=== PATIENT | male | born 1990 | race American Indian/Alaskan Native ===

== ENCOUNTER 2018-08-29 11:24 | Emergency (ER) | payer SELFPAY ==
[2018-08-29 12:00] VITALS: BP 151/99
--- NOTE | 2018-08-29 12:00 | Emergency Department Report ---
Blank Doc - Documentation Documentation: This is a 28-year-old male that presents with acute headache and right sided eye pain. Denies any injuries or visual changes. This initial assessment/diagnostic orders/clinical plan/treatment(s) is/are subject to change based on patient's health status, clinical progression and re- assessment by fellow clinical providers in the ED. Further treatment and workup at subsequent clinical providers discretion. Patient/guardians urged not to elope from the ED as their condition may be serious if not clinically assessed and managed. Initial orders include: 1- Patient sent to [facility] for further evaluation and treatment 2- tonopen/cleaning lamp 3- CT head 4- graduate school dean notified patient to be brought back [facility] for medical evaluation.
--- NOTE | 2018-08-29 13:38 | Emergency Department Report ---
Blank Doc - Documentation Documentation: Went to see the patient twice the patient was in the radiology department rece iving a CAT scan of the head for his headache. Upon the patient returning from CAT scan he eloped before being evaluated by me. Patient not receive results of imaging or receive any medical treatment
--- NOTE | 2018-08-29 13:57 | Cat Scan Report ---
CT head/brain wo con INDICATION: headache. TECHNIQUE: Routine CT head without contrast. Sagittal and coronal reformatted images were obtained. A ll CT scans at this location are performed using CT dose reduction for ALARA by means of automated ex posure control. COMPARISON: None. FINDINGS: BRAIN / INTRACRANIAL CONTENTS: No acute hemorrhage, mass effect, midline shift, hydrocephalus, or acu te, large territorial infarct. No chronic infarct or focal atrophy. Normal brain volume and ventricul ar/sulcal size for age. No significant white matter abnormality. CRANIOCERVICAL JUNCTION: No significant abnormality. ORBITS: No significant abnormality of visualized orbits. SINUSES / MASTOIDS: Fluid level accumulation is seen in the right frontal sinus. Right anterior and p osterior ethmoid air cells are opacified. Left ethmoid air cells, left frontal sinus and sphenoid sin us are normally pneumatized. We did not image the maxillary sinuses. ADDITIONAL FINDINGS: None. IMPRESSION: Normal CT scan of the brain Fluid accumulation and mucosal disease in the right frontal sinus and right ethmoid air cells Signer Name: Linda Dumont MD Signed: 08/29/2018 1:52 PM Workstation Name: [id number]
== END 2018-08-29 14:00 | disposition left against medical advice (07) ==
LOC: ED 11:24
DX: R51 Headache (principal); Z53.21 Procedure and treatment not carried out due to patient leaving prior to being seen by health care provider
CPT/HCPCS: 70450

== ENCOUNTER 2021-01-12 11:51 | Emergency (ER) | payer SELFPAY ==
[2021-01-12 12:21] VITALS: BP 143/90
[2021-01-12] MEDS ORDERED: ASPIRIN 325 MG TAB PO ONE (12:41)
[2021-01-12 13:33] LABS: Basophils % (Auto) 0.5 % (0.0-1.8); Eosinophils # (Auto) 0.2 K/mm3 (0.0-0.4); Eosinophils % (Auto) 1.9 % (0.0-4.3); Hematocrit 44.4 % (35.5-45.6); Hemoglobin 14.8 gm/dl (11.8-15.2); Lymphocytes # (Auto) 2.5 K/mm3 (1.2-5.4); Lymphocytes % (Auto) 29.3 % (13.4-35.0); Mean Corpuscular HGB Conc 33 % (32-34); Mean Corpuscular Volume 92 fl (84-94); Monocytes # (Auto) 0.6 K/mm3 (0.0-0.8); Monocytes % (Auto) 7.4 % (0.0-7.3); Platelet Count 271 K/mm3 (140-440); Red Blood Count 4.82 M/mm3 (3.65-5.03); Red Cell Distribution Width 12.6 % (13.2-15.2)
--- NOTE | 2021-01-12 13:35 | Emergency Department Report ---
ED Chest Pain HPI - General Chief Complaint: Chest Pain Stated Complaint: CHEST PAIN /TIGHTNESS Time Seen by Provider: 01/12/21 12:35 Source: patient Mode of arrival: Ambulatory Limitations: No Limitations - History of Present Illness Initial Comments: Patient is a 30-year-old male presents emergency room with complaints of substernal chest pain that began yesterday. 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 He states his pain is worse with certain movements. He denies any fall or injury. He denies any fever, nausea, vomiting, diarrhea, shortness of breath, leg swelling, calf pain, hemoptysis, cough. Patient denies any past medical history. Allergy to tramadol. He is a non-smoker. He denies any family cardiac history. He denies any recent travel or recent surgery. Severity scale (0 -10): 5 - Related Data Previous Rx's Medication Instructions Recorded Last Taken Type Naproxen 375 mg PO BID PRN #14 tablet 01/12/21 Unknown Rx methOCARBAMOL [Robaxin TAB] 500 mg PO BID PRN #14 tab 01/12/21 Unknown Rx Allergies Allergy/AdvReac Type Severity Reaction Status Date / Time tramadol Allergy Unknown Verified 08/29/18 12:00 Heart Score - HEART Score History: Slightly suspicious EKG: Normal Age: < 45 Risk factors: 1-2 risk factors Troponin: < normal limit HEART Score: 1 - EKG Read Time Time EKG Completed: 00:00 (please see ekg) EKG Read Time: 00:00 (please see ekg) ED Review of Systems ROS: Stated complaint: CHEST PAIN /TIGHTNESS Other details as noted in HPI Comment: All other systems reviewed and negative ED Past Medical Hx - Social History Smoking Status: Never Smoker Substance Use Type: None - Medications Home Medications: Home Medications Medication Instructions Recorded Confirmed Last Taken Type Naproxen 375 mg PO BID PRN #14 tablet 01/12/21 Unknown Rx methOCARBAMOL [Robaxin TAB] 500 mg PO BID PRN #14 tab 01/12/21 Unknown Rx ED Physical Exam - General Limitations: No Limitations General appearance: alert, in no apparent distress - Head Head exam: Present: atraumatic, normocephalic - Eye Eye exam: Present: normal appearance - ENT ENT exam: Present: mucous membranes moist - Respiratory Respiratory exam: Present: normal lung sounds bilaterally, chest wall tenderness (reproducible mid sternal chest wall ttp, no crepitus, no deformity). Absent: respiratory distress, wheezes, rales, rhonchi, stridor, accessory muscle use, decreased breath sounds, prolonged expiratory - Cardiovascular Cardiovascular Exam: Present: regular rate, normal rhythm, normal heart sounds. Absent: systolic murmur, diastolic murmur, rubs, gallop - Neurological Exam Neurological exam: Present: alert, oriented X3 - Psychiatric Psychiatric exam: Present: normal affect, normal mood - Skin Skin exam: Present: warm, dry, intact ED Course Vital Signs 01/12/21 12:15 Temperature 98.8 F Pulse Rate 74 Respiratory 20 Rate Blood Pressure 143/90 [Right] O2 Sat by Pulse 99 Oximetry ED Medical Decision Making - Lab Data Result diagrams: 01/12/21 13:08 01/12/21 13:08 - EKG Data EKG shows normal: sinus rhythm, axis, intervals, QRS complexes, ST-T waves Rate: normal - Radiology Data Radiology results: report reviewed Ordering Physician: BERNARDA [place] Date of Service: 01/12/21 Procedure(s): XR chest routine 2V Accession Number(s): [id number] cc: BERNARDA [place] Fluoro Time In Minutes: CHEST 2 VIEWS INDICATION: CP. COMPARISON: None. FINDINGS: Support devices: None. Heart: Within normal limits. Lungs/Pleura: No acute air space or interstitial disease. No significant pleural effusion. IMPRESSION: No acute findings. Signer Name: Nestor Augustine MD Signed: 01/12/2021 1:28 PM Workstation Name: [id number] Transcribed By: ES Dictated By: Nestor Augustine MD Electronically Authenticated By: Nestor Augustine MD Signed Date/Time: 01/12/211327 DD/ 27 TD/TT: - Medical Decision Making Patient is a 30-year-old male presents emergency room with complaints of substernal chest pain that began yesterday. 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 He states his pain is worse with certain movements. He denies any fall or injury. He denies any fever, nausea, vomiting, diarrhea, shortness of breath, leg swelling, calf pain, hemoptysis, cough. Patient denies any past medical history. Allergy to tramadol. He is a non-smoker. He denies any family cardiac history. He denies any recent travel or recent surgery. Vitals are stable. EKG is within normal limits. Chest x- ray with no acute process. Labs are normal. Troponin is negative. Patient symptoms have been ongoing for greater than 24 hours, the up-to-date medical literature recommends one negative troponin for ACS rule out. Heart score is 1, low risk for cardiac event. PERC criteria negative for PE, PE unlikely. On exam reproducible mid sternal chest wall ttp, no crepitus, no deformity. Examination appears likely consistent with costochondritis. Patient given prescription for medication. Patient will be referred to primary care and cardiology. Advised patient Please take medication as prescribed. Follow-up with your primary care doctor. Follow-up with a crap shooter. Return to emergency room for any new or worsening symptoms. Critical care attestation.: If time is entered above; I have spent that time in minutes in the direct care of this critically ill patient, excluding procedure time. ED Disposition Clinical Impression: Chest pain Qualifiers: Chest pain type: unspecified Qualified Code(s): R07.9 - Chest pain, unspecified Disposition: 01 HOME / SELF CARE / HOMELESS Is pt being admited?: No Does the pt Need Aspirin: Yes (given) Condition: Stable Instructions: Nonspecific Chest Pain, Adult Additional Instructions: Please take medication as prescribed. Follow-up with your primary care doctor. Follow-up with a crap shooter. Return to emergency room for any new or worsening symptoms. Prescriptions: Naproxen 375 mg PO BID PRN #14 tablet PRN Reason: pain methOCARBAMOL [Robaxin TAB] 500 mg PO BID PRN #14 tab PRN Reason: muscle spasm/pain Referrals: JOHNIE BARRIOS MD [Staff Physician] - 3-5 Days [facility] [Provider Group] - 3-5 Days KENDAL OLSEN MD [Staff Physician] - 3-5 Days Time of Disposition: 14:04 Print Language: ROMANSH
[2021-01-12 14:00] LABS: Alanine Aminotransferase 26 units/L (7-56); Albumin 4.4 g/dL (3.9-5); BUN/Creatinine Ratio 10; Blood Urea Nitrogen 10 mg/dL (9-20); Calcium 9.3 mg/dL (8.4-10.2); Hemolysis Index 13
--- NOTE | 2021-01-13 11:39 | Electrocardiograph Report ---
[facility] Test Date: 2021-01-12 Test Time: 12:06:42 Pat Name: LYNN PINEDA Department: Room: Gender: M Room Clerk: HENRRY : 1990 Requested By: ROSE VICK Order Number: [id number] Reading MD: Kyle Benjamin Measurements Intervals [place] Rate: 79 P: 32 IN: 156 QRS: 21 QRSD: 85 T: 20 QT: 350 QTc: 403 Interpretive Statements Sinus rhythm No previous ECG available for comparison Electronically Signed On 01-13-2021 11:39:17 EST by Kyle Benjamin
== END 2021-01-12 14:12 | disposition home or self-care (01) ==
LOC: ED 11:51
DX: R07.9 Chest pain, unspecified (principal); Z79.899 Other long term (current) drug therapy; Z88.6 Allergy status to analgesic agent
CPT/HCPCS: 36415; 71046; 80053; 84484; 85025; 93005; 99284